=== PATIENT | male | born 1960 | race Caucasian/White ===

== ENCOUNTER → 2019-06-16 10:33 | Outpatient (CLI) | payer OTHER ==
[~2019-06-16 10:33] MED LIST: ASPIRIN81 MG PO; FLOMAX0.4 MG PO; FLUTICASONE PRO16 GM NASAL; HCTZ25 MG PO; LANTUS SOL100 UNIT/1 SC; MIRALAX17 GM PO; NEURONTIN 300300 MG PO; OMEPRAZOLE20 M1 PO; PLAVIX75 MG PO; PROSCAR5 MG PO; REQUIP0.25 MG PO; RISPERDAL2 MG PO; TENORMIN25 MG PO; WELLBUTRIN XL150 M1 PO; ZOCOR40 MG PO; ZYRTEC10 MG PO
[2019-07-01 08:09] VITALS: BMI 33.6
== END | disposition home or self-care (01) ==
LOC: D.CT 10:30
PROVIDERS: ATTEND Internal Medicine Interventional Cardiology
DX: I70.213 Atherosclerosis of native arteries of extremities with intermittent claudication, bilateral legs (principal)

== ENCOUNTER 2019-07-01 07:01 | Outpatient (CLI) | payer OTHER ==
[~2019-07-01] VITALS: Ht 177.8 cm; Wt 106.4 kg
--- NOTE | ~2019-07-01 | HEMODYNAMI ---
PATIENT:RAYMOND DEMPSEY MEDICAL RECORD: [id number] : 56 LOCATION:[facility] ADMISSION DATE: 07/01/19 Generatedon:07/01/201912:38 Patient name: RAYMOND DEMPSEY Patient #: [id number] SSN: [id number] : 1960 Date of study: 07/01/2019 Page: Of Hemodynamic Procedure Report Patient Data Patient Demographics Procedure consent was obtained First Name: RAYMOND Gender: Male Last Name: ROSELYN : 1960 Patient #: [id number] Age: 59 year(s) Race: SSN: [id number] Additional ID: [id number] Contact details [address]: [address] [place] [address] State: [place] City: [place] Zip code: [address] Past Medical History Allergies Allergen Reaction Date Comments Reported Other allergy 07/01/2019 Codeine, Sulfa Admission Admission Data Admission Date: 07/01/2019 Admission Time: 7:01 Arrival Date: 07/01/2019 Arrival Time: 0:00 Admit Source: Other Insurance Payor: Private health insurance [facility] #: [id number] Height (in.): 70 BSA: 2.23 (m2) Height (cm.): 177.8 BMI: 33.58 (kg/m2) Weight (lbs.): 234 Weight (kg.): 106.14 Lab Results Lab Result Date: 07/01/2019 Lab Result Time: 0:00 Biochemistry Name Units Result Min Max BUN mg/dl 18 --(---*)-- 7 18 Creatinine mg/dl 1.1 --(--*-)-- 0.6 1.3 eGFR ml/min 72 *-(----)-- 90 120 NONAFRICAN CBC Name Units Result Min Max Hemoglobin g/dl 16.2 --(--*-)-- 13.5 17.5 Procedure Procedure Types Cath Procedure Peripheral Cath Diagnostic Procedure Robotic Maintenance Technician Peripheral Procedures Dqvvj-Jfqzfdb-Ptm-Off Peripheral vascular Intervention Stent Stent Iliac w/plasty Initial Procedure Description Procedure Date Procedure Date: 07/01/2019 Procedure Start Time: 9:34 Procedure End Time: 9:57 Procedure Staff Name Function Abimael Collins RT Monitor Matt Mccormick MD Performing Physician Sadie Gunn RT Monitor Nikko Pettit RN Nurse Laurie Nuñez RT Scrub Procedure Data Cath Procedure Fluoroscopy Diagnostic fluoroscopy Total fluoroscopy Time: 2.7 time: 2.7 min min Diagnostic fluoroscopy Total fluoroscopy dose: 332 dose: 332 mGy mGy Contrast Material Contrast Material Type Amount (ml) Isovue 300 119 Entry Location Entry Primary Successful Side Size (Fr) Upsize Upsize Entry Closure S uccessful Closure Location 1 (Fr) 2 (Fr) Remarks Device Remarks Femoral Left 5 Fr Exoseal artery Femoral Right 6 Fr Exoseal artery Mid-Length Estimated blood loss: 10 ml Diagnostic catheters Device Type Used For End Catheter Placement DIAGNOSTIC UF 5Fr Procedure catheter ([id number]) DIAGNOSTIC UF 5Fr Procedure catheter ([id number]) Procedure Complications No complications Procedure Medications Medication Administration Route Dosage 0.9% NaCl I.V. 100 ml/hr Oxygen etCO2 Nasal cannula 2 l/min Heparin Flush Bag added to field 2 bags (1000units/500ml NS) Lidocaine 2% added to field 20 Versed I.V. 2 mg Fentanyl I.V. 100 mcg Heparin Bolus I.V. 4000 units Integrilin (Bolus I.V. 9.5 ml 2mg/ml) Integrilin (Bolus I.V. 0.5 ml 2mg/ml) Plavix P.O. 600 mg Hemodynamics Rest BSA: 2.23 (m2) HGB: 16.2 (g/dl) O2 Consumption: Estimated: 272.42 (ml/min) O2 Co nsumption indexed: Estimated:122.16 (ml/min/m) Heart Rate: 83 (bpm) Snapshots Pre Cath Intra NCS Post Cath Vital Signs Time Heart Resp SPO2 etCO2 NIBP (mmHg) Rhythm Pain Sedation Rate (ipm) (%) (mmHg) Status Level (bpm) 8:53:42 76 19 95 31.7 120/78(105) NSR 0 (11) 10(A) , No pain 8:57:50 80 15 93 36.2 109/81(95) NSR 0 (11) 10(A) , No pain 9:13:50 78 17 94 36.2 121/68(101) NSR 0 (11) 10(A) , No pain 9:18:00 75 15 93 36.3 128/68(112) NSR 0 (11) 10(A) , No pain 9:22:06 69 14 94 34.7 124/77(97) NSR 0 (11) 10(A) , No pain 9:26:16 77 17 95 0 103/73(82) NSR 0 (11) 10(A) , No pain 9:31:03 69 16 94 45.3 144/65(118) NSR 0 (11) 10(A) , No pain 9:35:11 69 17 93 33.2 121/67(85) NSR 0 (11) 10(A) , No pain 9:39:18 72 12 93 31.7 110/65(79) NSR 0 (11) 10(A) , No pain 9:43:22 76 14 94 5.2 99/71(79) NSR 0 (11) 9(A) , No pain 9:47:24 77 12 92 43.1 96/65(81) NSR 0 (11) 9(A) , No pain 9:52:19 77 11 90 28.7 103/62(91) NSR 0 (11) 10(A) , No pain 9:56:22 78 16 94 36.3 119/70(86) NSR 0 (11) 10(A) , No pain Medications Time Medication Route Dose Verified Delivered Reason Notes Effectiveness by by 8:52:50 0.9% NaCl I.V. 100 Nikko Nikko Per physician ml/hr Wilver Pettit RN RN 8:53:10 Oxygen etCO2 2 Nikko Nikko for low 02 sats Nasal l/min Wilver Pettit cannula RN RN 8:53:29 Heparin Flush added 2 Nikko Nikko used for Bag to bags Wilver Pettit procedure (1000units/500ml field BLEVINS RN NS) 8:53:41 Lidocaine 2% added 20ml Nikko Nikko for local to vial Wilvre Pettit anesthetic field BLEVINS RN 9:35:25 Versed I.V. 2 mg Nikko Nikko for sedation Wilver Pettit RN RN 9:35:33 Fentanyl I.V. 100 Nikko Nikko for sedation mcg Lorigan Lorigan RN RN 9:43:05 Heparin Bolus I.V. 4000 Nikko Nikko for units Wilver Pettit anticoagulation RN RN 9:43:21 Integrilin I.V. 9.5 Nikko Nikko for (Bolus 2mg/ml) ml Wilver Pettit antiplatelet RN RN therapy 9:43:32 Integrilin I.V. 0.5 Nikko Nikko to sharp's (Bolus 2mg/ml) ml Wilver Pettit RN RN 9:52:27 Plavix P.O. [address] for mg Wilver Pettit antiplatelet RN RN therapy Procedure Log Time Note 8:30:00 Patient allergic to Other allergyCodeine, Sulfa 8:30:06 Arrival Date: 07/01/2019 12:00:00 AM 8:30:19 Insurance Payor : Private health insurance 8:30:21 Admit Source: Other 8:30:37 Patient Height : 70 inches 8:30:43 Patient Weight : 234 lbs 8:40:31 Sadie HAYES(R) (CV) sent for patient. Start room use. 8:40:44 Time tracking: Regular hours (M-F 7:00 - 5:00) 8:40:51 Plan of Care:Hemodynamics will remain stable., Cardiac rhythm will remain stable., Comfort level will be maintained., Respiratory function will remain adequate., Patient/ family verbilizes understanding of procedure., Procedure tolerated without complication., Recovers from procedure without complications.. 8:42:03 Patient received from Pre/Post Procedure Room to CCL 1 Alert and oriented. Tansferred to table in Supine position. 8:42:11 Signed procedure consent form obtained from patient. 8:42:12 Warm blankets applied, and kyra hugger turned on for patient comfort. 8:42:13 Correct patient and procedure confirmed by team. 8:52:37 ECG and BP/O2 sat monitors applied to patient. 8:52:38 Vital chart was started 8:52:39 Baseline sample Acquired. 8:52:47 Rhythm: sinus rhythm 8:52:49 Full Disclosure recording started 8:52:50 0.9% NaCl 100 ml/hr I.V. was administered by Nikko Pettit RN; Per physician; Verbal order read back and verified. 8:52:51 - 8:52:58 H&P Date Dictated: 07/01/2019 H&P Addendum completed by physician on day of procedure. (MUST COMPLETE FOR ALL OUTPATIENTS), New H&P dictated by physician.. 8:53:01 Pre-procedure instructions explained to patient. 8:53:02 Pre-op teaching completed and patient verbalized understanding. 8:53:06 Family in patients room. 8:53:09 Patient NPO since Midnight. 8:53:10 Oxygen 2 l/min etCO2 Nasal cannula was administered by Nikko Pettit RN; for low 02 sats; Verbal order read back and verified. 8:53:26 Is the patient allergic to Iodine/contrast media? No. 8:53:29 Heparin Flush Bag (1000units/500ml NS) 2 bags added to field was administered by Nikko Pettit RN; used for procedure; Verbal order read back and verified. 8:53:30 Was the patient premedicated? Yes 8:53:41 Is patient on blood thinner?No 8:53:41 Lidocaine 2% 20ml vial added to field was administered by Nikko Pettit RN; for local anesthetic; Verbal order read back and verified. 8:53:49 Patient diabetic? Yes. 8:53:54 If diabetic: On Metformin? No 8:53:59 ----Pre-sedation anethsthesia assessment.---- 8:54:03 Previous problem with sedation/anesthesia? No ? 8:54:06 Snore? Yes 8:54:08 Sleep apnea? Yes 8:54:12 Deviated septum? No 8:54:14 Opens mouth fully? Yes 8:54:16 Sticks out tongue? Yes 8:54:22 Airway obstruction? Yes copd and home cpap. 8:54:31 Dentures? Yes in tight 8:54:44 Pre procedure: right dorsailis pedis pulse Doppler 8:54:50 Pre procedure: left dorsailis pedis pulse Doppler 8:55:02 Patient pain scale 0/10 ?. 8:55:12 IV patent on arrival in right hand with 0.9% NaCl at KVO. 8:57:00 Bilateral groins area was prepped with chlora-prep and draped in steril e fashion 8:57:02 Alarms reviewed by RMeliton N. 8:57:03 Sharps counted by scrub and verified by RMelitonN. 8:57:28 Procedure Status Peripheral. 8:59:52 Use device set Femoral Dx 8:59:55 ACIST Syringe (57402) opened to sterile field. 8:59:56 Bag Decanter (2002S) opened to sterile field. 9:00:03 Medline Cath Pack ([id number]) opened to sterile field. 9:00:08 ACIST Hand Control (61438) opened to sterile field. 9:00:11 ACIST Manifold (72374) opened to sterile field. 9:00:16 Tegaderm 4 x 4 (1626W) opened to sterile field. 9:00:18 SHEATH 5FR [place] (OCF888) opened to sterile field. 9:00:19 EMERALD Guide Wire (106-815) opened to sterile field. 9:06:38 Zero performed for pressure channel P1 9:23:27 Physician paged 9:31:07 --------ALL STOP TIME OUT------ 9:31:07 Physician arrived 9:31:09 Final Timeout: patient, procedure, and site verified with staff and physician. All members of the team are in agreement. 9:31:12 Bilateral groins site verified by team. 9:31:17 Fire Safety Assessment: A--An alcohol-based skin anteseptic being used preoperatively., C--Open oxygen or nitrous oxide is being used., D--An ESU, laser, or fiber-optic light is being used. 9:31:22 Physical assessment completed. ASA score P 2 - A patient with mild systemic disease as per Matt Mccormick MD. 9:31:31 Sedation plan: IV Moderate Sedation Medication:Versed, Fentanyl 9:31:32 2) 60-89 Mildly reduced kidney function, and other findings (as for stage 1) point to kidney disease. 9:31:33 Maximum allowable contrast dose (3.7 X eGFR X 0.75)200 ml. 9:33:31 Procedure started. 9:34:07 Local anesthetic to left femerol artery with Lidocaine 2% by Matt Mccormick MD.INITIAL ACCESS ONLY 9:35:06 A 5 Fr sheath was inserted into the Left Femoral artery 9:35:25 Versed 2 mg I.V. was administered by Nikko Pettit RN; for sedation; Verbal order read back and verified. 9:35:29 A DIAGNOSTIC UF 5Fr catheter ([id number]) was advanced over the wire and used for Procedure. 9:35:33 Fentanyl 100 mcg I.V. was administered by Nikko Pettit RN; for sedation; Verbal order read back and verified. 9:36:34 Left leg runoff performed. 9:36:46 Right leg runoff performed. 9:37:10 SHEATH 6FR Brite Tip 35cm ([id number]) opened to sterile field. 9:37:24 SHEATH 6FR [place] (ONZ588) opened to sterile field. 9:37:34 INFLATOR Merit BasixCompak (AD4411) opened to sterile field. 9:38:18 Local anesthetic to right femoral artery with Lidocaine 2% by Matt Mccormick MD.ADDITIONAL ACCESS 9:39:59 A 6 Fr Mid-Length sheath was inserted into the Right Femoral artery 9:40:39 Catheter removed from left femeral artery. 9:41:54 J WIRE wire advanced. 9:42:13 EMERALD Guide Wire (500-290) opened to sterile field. 9:42:28 A DIAGNOSTIC UF 5Fr catheter ([id number]) was advanced over the wire and used for Procedure. 9:43:05 Heparin Bolus 4000 units I.V. was administered by Nikko Pettit RN; for anticoagulation; Verbal order read back and verified. 9:43:21 Integrilin (Bolus 2mg/ml) 9.5 ml I.V. was administered by Nikko Pettit RN; for antiplatelet therapy; Verbal order read back and verified. 9:43:32 Integrilin (Bolus 2mg/ml) 0.5 ml I.V. was administered by Nikko Pettit RN; to sharp's; Verbal order read back and verified. 9:44:09 Procedure type changed to Cath procedure, Peripheral Cath Diagnostic Procedure, Robotic Maintenance Technician Peripheral Procedures, Dapcs-Trxthhb-Oiv-Off, Peripheral vascular Intervention, Stent, Stent Iliac w/plasty Initial 9:44:48 Place stent Inflation Number: 1 A CHIQUIS 7 x 29 x 135 stent ([id number] ) was prepped and advanced across the Ostial Common Iliac, Right 80. The stent was deployed at 11 KAMINI for 0:10 (min:sec) 0. 9:45:56 Stent catheter was removed intact over wire. 9:45:57 Wire removed. 9:46:03 Catheter removed. 9:46:18 EXOSEAL 5Fr (EX500) opened to sterile field. 9:48:23 EXOSEAL 6Fr (EX600) opened to sterile field. 9:50:03 THE 6 BERMUDIAN SHEATH LONG IS EXCHANGED FOR THE SHORT 6 BERMUDIAN SHEATH. 9:50:25 Sheath removed intact; hemostasis achieved with Exoseal to the Right Femoral artery. 9:50:55 Sheath removed intact; hemostasis achieved with Exoseal to the Left Femoral artery. 9:51:00 Procedure ended.(Physican Out) 9:51:19 Contrast amount:Isovue 300 119ml. 9:51:31 Fluoroscopy time 02.70 minutes. 9:51:37 Flurop Dose total: 332 9:51:37 Fluoroscopy dose: 332 mGy 9:51:47 Dose Area Product 66272 mGy/cm. 9:52:03 ACT drawn and resulted at 224 seconds. (normal therapeutic range 180-24 0 seconds). 9:52:14 Sharps counted by scrub and verified by R.N. 9:52:27 Plavix 600 mg P.O. was administered by Nikko Pettit RN; for antiplatelet therapy; Verbal order read back and verified. 9:53:07 Insertion/operative site no bleeding no hematoma. 9:53:12 Post-op/insertion site Right Femoral artery dressed using a 4 x 4 and Tegaderm. 9:53:18 Post-op/insertion site Left Femoral artery dressed using a 4 x 4 and Tegaderm. 9:53:25 Post right femoral artery:stable 9:53:33 Post left femerol artery:stable 9:53:38 Post Procedure Pulses reassessed and unchanged 9:53:49 Post-procedure physical assessment completed. ASA score P 2 - A patient with mild systemic disease as per Matt Mccormick MD. 9:53:56 Post procedure rhythm: unchanged. 9:54:00 Estimated blood loss: 10 ml 9:54:02 Post procedure instruction explained to patient.Patient verbalizes understanding. 9:54:03 Patient needs reinforcement of post procedure teaching. 9:56:27 Procedure and supply charges have been captured, reviewed, submitted an d are correct. 9:56:36 Procedure Complication : No complications 9:56:41 Vital chart was stopped 9:56:57 AFRO Findings: PVD: CONDUCTOR FREIGHT performed (see procedure notes) 9:56:59 Operative report dictated upon procedure completion. 9:57:00 See physician's report for complete and final results. 9:57:03 Report given to Pre/Post Procedure Room. 9:57:07 Patient transfered to Pre/Post Procedure Room with Stretcher. 9:57:10 Procedure ended. 9:57:10 Full Disclosure recording stopped 9:57:19 ACC-PCI Only Patient was given prescriptions, or instructed by Matt Mccormick MD to start/continue the following medications upon discharge: Plavix 9:57:21 End room use (Document Last) 12:37:35 Lab Result : Creatinine 1.1 mg/dl 12:37:35 Lab Result : BUN 18 mg/dl 12:37:35 Lab Result : Hemoglobin 16.2 g/dl 12:37:35 Lab Result : eGFR NONAFRICAN 72 ml/min Intervention Summary Intervention Notes Time ActionType Lesion and Equipment Action# Pressure Duration Attributes Used 9:44:[address] Place stent Ostial CHIQUIS 7 x 1 11 00:10 Common 29 x 135 Iliac, stent Right ([id number]) Device Usage Item Name Manufacture Quantity Catalog Hospital Part Current Minimal L ot# / Number Charge Number Stock Stock Serial# Code ACIST Acist 1 52763 759965 925513 535384 20 Syringe Medical (37519) Systems Inc Bag Microtek 1 813319 78681 612057 5 Decanter Medical Inc. () Medline Medline 1 [id number] 169065 75284 098079 5 Cath Pack ([id number]) ACIST Hand Acist 1 26974 633959 313476 446692 5 Control Medical (14815) Systems Inc ACIST Acist 1 74140 535290 161863 499792 5 Manifold Medical (97656) Systems Inc Tegaderm 4 3M 1 1626W 272132 933148 079732 5 x 4 (1626W) SHEATH 5FR Terumo 1 BYG769 223702 097837 898116 5 [place] (PIQ411) EMERALD Cardinal 2 502-455 109136 994198 812172 5 Guide Wire Health (502-455) DIAGNOSTIC Cardinal 1 [id number] 403520 322393 582209 10 UF 5Fr Health catheter ([id number]) SHEATH 6FR Cardinal 1 [id number] 134231 173331 946927 1 Brite Tip Health 35cm (386427I) SHEATH 6FR Terumo 1 TWK690 986922 029751 335193 40 [place] (UIX663) INFLATOR Merit 1 ZK5131 516469 473928 300626 15 [facility] Medical BasixCompak (JR4222) CHIQUIS 7 x Cardinal 1 [id number] 291561 68085 371029 5 29 x 135 Health stent ([id number]) EXOSEAL 5Fr Cardinal 1 EX500 914958 154984 484364 10 (EX500) Health EXOSEAL 6Fr Cardinal 1 EX600 606657 180495 833358 10 (EX600) Health Signature [place]it [place] Stage Time Signature Unsigned Intra-Procedure 07/01/2019 Sadie 9:58:21 AM Velia RT(R) (CV) Intra-Procedure 07/01/2019 Nikko 9:58:58 AM Wilver BLEVINS Intra-Procedure 07/01/2019 Matt Mccormick 12:38:00 PM [place] [id number] [place] [address]
[2019-07-01] MEDS ORDERED: LANTUS SOL100 UNIT/1 SC (07:28)
[2019-07-01] MEDS ORDERED: REQUIP0.25 MG PO ×2 (07:28→07:29)
[2019-07-01] MEDS ORDERED: PROSCAR5 MG PO (07:28)
[2019-07-01] MEDS ORDERED: FLUTICASONE PRO16 GM NASAL (07:28)
[2019-07-01] MEDS ORDERED: MIRALAX17 GM PO (07:29)
[2019-07-01] MEDS ORDERED: NEURONTIN 300300 MG PO (07:29)
[2019-07-01] MEDS ORDERED: TENORMIN25 MG PO (07:30)
[2019-07-01] MEDS ORDERED: ZOCOR40 MG PO (07:30)
[2019-07-01] MEDS ORDERED: HCTZ25 MG PO (07:30)
[2019-07-01] MEDS ORDERED: FLOMAX0.4 MG PO (07:30)
[2019-07-01] MEDS ORDERED: RISPERDAL2 MG PO (07:31)
[2019-07-01] MEDS ORDERED: OMEPRAZOLE20 M1 PO (07:31)
[2019-07-01] MEDS ORDERED: WELLBUTRIN XL150 M1 PO (07:31)
[2019-07-01] MEDS ORDERED: ZYRTEC10 MG PO (07:31)
[2019-07-01 08:01] LABS: BASOPHILS 0.2 % (0-2); HEMATOCRIT 45.9 % (42.0-54.0); HEMOGLOBIN 16.2 g/dL (13.5-17.5); IMMATURE GRANULOCYTES 0.2 % (0-5); LYMPHOCYTES 42.7 % (15-50); MCH 31.3 pg (26.0-34.0); MCHC 35.3 g/dL (31.0-37.0); MCV 88.8 fL (80.0-100.0); MEAN PLATELET VOLUME 9.5 fL (7.4-10.4); NEUTROPHILS 47.9 % (40-80); PLATELET COUNT 160 10x3/uL (130-400); RBC 5.17 10x6/uL (4.20-6.10); RDW 15.1 % (11.5-14.5); WBC 13.3 10x3/uL (4.8-10.8)
[2019-07-01 08:09] VITALS: BP 140/76; Ht 177.8 cm; Wt 106.4 kg
--- NOTE | 2019-07-01 10:11 | NUR ---
REC TO ROOM VIA STRETCHER. BILRONAN BLACKBURN W CDI DRESSINGS, SOFT TO TOUCH. MONITORING INITIATED. O2 AT 2LNC. VSS.
[2019-07-01 10:19] LABS: ANION GAP 9.8 mmol/L (8-16); CALCIUM 8.3 mg/dL (8.5-10.1); CARBON DIOXIDE 29.2 mmol/L (21.0-32.0); CHOL - HDL RATIO 3.9 ratio (2.3-4.9); CREATININE - SERUM 1.1 mg/dL (0.6-1.3); LDL-HDL RATIO 2.4 ratio (1.5-3.5)
--- NOTE | 2019-07-01 10:20 | NUR ---
RESPONDS TO VERBAL. GROINS BILAT SOFT AND NONTENDER. NO COMPLAINTS. VSS.
[2019-07-01] MEDS ORDERED: ASPIRIN81 MG PO (10:32)
[2019-07-01] MEDS ORDERED: PLAVIX75 MG PO (10:32)
--- NOTE | 2019-07-01 10:35 | NUR ---
ROUSES TO VERBAL STIMULI, NO COMPLAINTS. VSS. BILAT GROINS CDI, PPP BILAT. NO BLEEDING OR HEMATOMA NOTED.
--- NOTE | 2019-07-01 10:50 | NUR ---
RESTING WITHOUT COMPLAINT. VSS. NO COMPLAINTS. BILAT GROINS CDI, NO BLEEDING OR HEMATOMA NOTED. PPP.
--- NOTE | 2019-07-01 11:22 | NUR ---
REPOSITIONED LEGS W KNEES SL ELEVATED, HOB TILTED SL UP FOR PT COMFORT. PPP, BILAT GROINS SOFT WITHOUT HEMATOMA/BLEEDING. VSS.
--- NOTE | 2019-07-01 11:49 | NUR ---
VSS. BILAT GROINS SOFT, NO HEMATOMA/BLEEDING. PPP BILAT. NO COMPLAINTS.
--- NOTE | 2019-07-01 12:15 | NUR ---
VSS. BILAT GROINS CDI, NO HEMATOMA/BLEEDING. PPP BILAT. VOICES NO COMPLAINTS.
--- NOTE | 2019-07-01 12:50 | NUR ---
pt assisted into sitting position via stretcher, voided 400cc into urinal. Groins bilateral CDI, PPP bilat. Tolerating diet.
--- NOTE | 2019-07-01 13:19 | NUR ---
PT ALEJANDRO SANDWICH, FLUIDS. BILAT GROINS SOFT, NO HEMATOMA/BLEEDING. PPP BILAT. VSS. DENIES COMPLAINTS.
--- NOTE | 2019-07-01 13:45 | NUR ---
PT UP TO BATHROOM FOR BOWEL MOVEMENT, INSTR HOLD PRESSURE ON GROINS. ASSISTED BACK TO ROOM, IV DC TIP INTACT. DC INSTRUCTIONS REVIEWED W PT AND LAWN AND GARDEN TECHNICIAN. GROINS BILAT SOFT, NO BLEEDING/HEMATOMA. PPP.
--- NOTE | 2019-07-01 14:16 | NUR ---
DC AMBULATORY WITH STAFF TO PRIVATE VEHICLE WITH COMPANION, ALL BELONGINGS.
--- NOTE | 2019-07-02 14:08 | OP ---
PATIENT NAME: RAYMOND DEMPSEY MEDICAL RECORD: [id number] :56 LOCATION:D.CAT ADMISSION DATE: SURGEON: IVAN RUIZ MD DATE OF OPERATION: 07/01/2019 PROCEDURES: 1. Stent placement, iliac right. 2. ACQUISITIONS EDITOR of iliac right. 3. Aortofemoral runoff. 4. Abdominal aortography. INDICATIONS: Claudication and peripheral vascular disease. PROCEDURE IN DETAIL: After informed consent was obtained and after detailed explanation of risks, benefits as well as alternative therapies, the patient elected to proceed with angiogram and angioplasty. FINDINGS: Abdominal aortography was performed. The catheter was pulled down for aortofemoral runoff. Abdominal aortography reveals no significant abdominal aortic disease. No dissection or aneurysm formation. 1. Right LEG: A. Iliac: The common iliac has 80% stenosis in the proximal aspect, otherwise the iliacs have mild irregularities. B. Femoral system: The common, superficial, and deep femoral have mild irregularities, but no flow-limiting stenosis. C. Popliteal and infrapopliteal vessels are widely patent with good 3-vessel runoff to the foot. LEFT LEG: A. Iliac: The common, internal, and external iliacs have mild irregularities, but no flow-limiting stenosis. B. Femoral system: The common, superficial, and deep femoral have mild irregularities, but no flow-limiting stenosis. C. Popliteal and infrapopliteal vessels are widely patent with good 3-vessel runoff to the foot. ACQUISITIONS EDITOR AND STENT OF THE RIGHT COMMON ILIAC: The stent used was 7 x 29 Cordis Zaira. Result was 0% residual stenosis. OVERALL IMPRESSION: Successful ACQUISITIONS EDITOR and stent of the right common iliac going from 80% initial stenosis to 0% residual. TRANSINT:[id number] Voice Confirmation ID: [id number] DOCUMENT ID: [id number] IVAN RUIZ MD at 1408 CC: [id number] DICTATION DATE: 07/01/19 0955 BOOKMOBILE LIBRARIAN: 07/01/19 1145 DEP CLI 07/01/19 [place] [id number]
== END 2019-07-01 14:15 | disposition home or self-care (01) ==
LOC: D.CATH 07:01
PROVIDERS: ATTEND Internal Medicine Interventional Cardiology
DX: I70.213 Atherosclerosis of native arteries of extremities with intermittent claudication, bilateral legs (principal)